=== PATIENT | female | born 1985 | race Caucasian/White ===

== ENCOUNTER 2016-12-10 05:31 | Emergency (ER) | payer OTHER ==
[~2016-12-10] VITALS: Ht 170.2 cm; Wt 106.3 kg
[~2016-12-10 05:31] MED LIST: Bactrim,Septra DS 80 PO; DAILY VALUE1 EACH PO; FLOMAX0.4 MG PO; Feosol PO; GLUCOPHAGE500 MG PO; KEFLEX500 MG PO; LORTAB 5-325 M1 EACH PO; MOTRIN800 MG PO; Motrin PO; NAPROSYN500 MG PO; NORVASC5 MG PO; PEN-VEE K,VEET500 MG PO; PRILOSEC OTC20 MG PO; PROZAC20 MG PO; SPRINTEC1 EACH PO; ZANTAC150 MG PO; ZOFRAN ODT4 MG PO; ~No Medications
[2016-12-10 06:24] LABS: HEMATOCRIT 40.1 % (36.0-46.0); MCH 27.8 PG (29.0-34.0); MCHC 33.2 G/DL (30.0-36.0); MCV 83.9 FL (83-99); MEAN PLAT.VOLUME 11.1 uM^3 (9.5-12.4); PLATELET COUNT 284 K/uL (156-360); RBC DIS.WIDTH-SD 45.1 % (39-53); RED BLOOD COUNT 4.78 M/uL (3.80-5.20); WHITE BLOOD COUNT 9.9 K/uL (4.1-10.2)
[2016-12-10 10:23] VITALS: BP 104/56
== END 2016-12-10 10:25 | disposition left against medical advice (07) ==
LOC: EME 05:31
DX: O03.4 Incomplete spontaneous abortion without complication (principal); Z87.442 Personal history of urinary calculi
CPT/HCPCS: 76801; 81003; 84702; 85027; 86900; 86901; 99281; 99284

== ENCOUNTER 2016-12-16 12:28 | Emergency (ER) | payer OTHER ==
[~2016-12-16] VITALS: Ht 170.2 cm; Wt 106.0 kg
[2016-12-16 13:40] LABS: HEMATOCRIT 33.9 % (36.0-46.0); MCH 28.1 PG (29.0-34.0); MCHC 32.7 G/DL (30.0-36.0); MCV 85.8 FL (83-99); MEAN PLAT.VOLUME 10.4 uM^3 (9.5-12.4); PLATELET COUNT 249 K/uL (156-360); RBC DIS.WIDTH-SD 46.1 % (39-53); RED BLOOD COUNT 3.95 M/uL (3.80-5.20); WHITE BLOOD COUNT 6.4 K/uL (4.1-10.2)
[2016-12-16 13:58] LABS: ADD MIUA? YES; BILIRUBIN NEGATIVE; BLOOD LARGE; COLOR YELLOW ((YELLOW)); GLUCOSE (STRIP) NEGATIVE; KETONES NEGATIVE; LEUKOCYTES NEGATIVE; NITRITE NEGATIVE; PROTEIN (STRIP) 100; SPECIFIC GRAVITY 1.018 (1.000-1.030)
[2016-12-16 14:24] LABS: ALKALINE PHOSPHATASE 67 IU/L (3-129); ANION GAP 9 MEQ/L (2-14); CHLORIDE 107 MEQ/L (99-109); GFR ESTIMATE (CALCULATED) > 59 mL/min/; GLUCOSE 89 mg/dL (70-99); POTASSIUM 3.9 MEQ/L (3.7-5.4); SAMPLE HEMOLYSIS CHECK 0; SAMPLE ICTERIC CHECK 0; SAMPLE LIPEMIA CHECK 0; SODIUM 142 MEQ/L (136-147); TOTAL BILIRUBIN 0.4 MG/DL (0.0-1.0); UREA NITROGEN (BUN) 20 mg/dL (9-23)
[2016-12-16 14:26] LABS: BACTERIA NONE SEEN /HPF; EPITHELIAL CELLS 1+ /HPF; MUCUS NONE SEEN /LPF; RED BLOOD CELLS TNTC /HPF (0-5); UCUL ADDED? NO; WHITE BLOOD CELLS 0-5 /HPF (0-5)
[2016-12-16 16:13] VITALS: BP 129/89
== END 2016-12-16 16:14 | disposition home or self-care (01) ==
LOC: EME 12:28
PROVIDERS: Physician Assistant
PROC: 10D17ZZ Extraction of Products of Conception, Retained, Via Natural or Artificial Opening (ICD-10-PCS; principal; 2016-12-16)
DX: O07.39 Failed attempted termination of pregnancy with other complications (principal)
CPT/HCPCS: 76856; 80053; 81003; 84702; 85027; 86850; 86900; 86901; 99281; 99285; J3010; J7030

== ENCOUNTER 2017-04-21 15:38 | Emergency (ER) | payer OTHER ==
[~2017-04-21] VITALS: Ht 172.7 cm; Wt 100.4 kg
[2017-04-21] MEDS ORDERED: JUNEL1 EAC1 PO (16:11)
[2017-04-21] MEDS ORDERED: LYRICA50 MG PO (16:11)
[2017-04-21 16:30] LABS: HEMATOCRIT 34.2 % (36.0-46.0); MCH 23.6 PG (29.0-34.0); MCHC 29.8 G/DL (30.0-36.0); MEAN PLAT.VOLUME 11.4 uM^3 (9.5-12.4); PLATELET COUNT 227 K/uL (156-360); RBC DIS.WIDTH-CV 18.1 % (11.8-14.6); RBC DIS.WIDTH-SD 51.9 % (39-53); RED BLOOD COUNT 4.33 M/uL (3.80-5.20); WHITE BLOOD COUNT 7.2 K/uL (4.1-10.2)
[2017-04-21 16:30] LABS: ADD MIUA? YES; BILIRUBIN NEGATIVE; BLOOD SMALL; COLOR YELLOW ((YELLOW)); GLUCOSE (STRIP) NEGATIVE; KETONES NEGATIVE; LEUKOCYTES SMALL; NITRITE NEGATIVE; PROTEIN (STRIP) NEGATIVE; SPECIFIC GRAVITY 1.019 (1.000-1.030); UROBILINOGEN 0.2 MG/DL (0.2-1.0)
[2017-04-21 16:35] LABS: BACTERIA RARE /HPF; EPITHELIAL CELLS 2+ /HPF; MUCUS TRACE /LPF; RED BLOOD CELLS 20-30 /HPF (0-5); WHITE BLOOD CELLS 0-5 /HPF (0-5)
[2017-04-21 16:50] LABS: CHLORIDE 107 mEq/L (99-109); POTASSIUM 4.2 mEq/L (3.7-5.4); SODIUM 139 mEq/L (136-147)
[2017-04-21 16:51] LABS: GLUCOSE 98 mg/dL (70-99)
[2017-04-21 16:53] LABS: ANION GAP 7 MEQ/L (2-14); QUANTITATIVE HCG < 4.0 MIU/ML
[2017-04-21 16:55] LABS: GFR ESTIMATE (CALCULATED) > 59 mL/min/
[2017-04-21 16:56] LABS: UREA NITROGEN (BUN) 23 mg/dL (9-23)
[2017-04-21] MEDS ORDERED: FLOMAX0.4 MG PO (17:49)
[2017-04-21] MEDS ORDERED: NORCO 5/3251 TABLET PO (17:49)
[2017-04-21] MEDS ORDERED: NAPROSYN500 MG PO (17:49)
[2017-04-21 18:38] VITALS: BP 130/88
== END 2017-04-21 18:40 | disposition home or self-care (01) ==
LOC: EME 15:38
PROVIDERS: Nurse Practitioner Family
DX: N20.0 Calculus of kidney (principal); R31.9 Hematuria, unspecified; Z87.442 Personal history of urinary calculi; K21.9 Gastro-esophageal reflux disease without esophagitis; I10 Essential (primary) hypertension
CPT/HCPCS: 74000; 80048; 81003; 84702; 85027; 99281; 99284; J1885; J2270; J7030

== ENCOUNTER 2018-04-01 16:36 | Inpatient (IN) | payer OTHER ==
[~2018-04-01] VITALS: Ht 170.2 cm; Wt 125.0 kg
[~2018-04-01 16:36] MED LIST changes: +JUNEL1 EAC1 PO; +LYRICA50 MG PO; +NORCO 5/3251 TABLET PO
[2018-04-01 17:07] LABS: BASOPHIL (%) 0.5 % (0-1); EOSINOPHIL (%) 0.5 % (0-5); HEMATOCRIT 36.3 % (36.0-46.0); HEMOGLOBIN 11.2 G/DL (11.9-15.5); IMMATURE GRANULOCYTE (%) 0.2 % (0.0-0.7); LYMPHOCYTE (%) 22.6 % (15-42); LYMPHOCYTE COUNT 1.4 K/uL (1.0-2.8); MCH 25.6 PG (29.0-34.0); MCHC 30.9 G/DL (30.0-36.0); MCV 82.9 FL (83-99); MONOCYTE (%) 4.1 % (3-12); MONOCYTE COUNT 0.3 K/uL (0-0.8); NEUTROPHIL (%) 72.1 % (45-76); NEUTROPHIL COUNT 4.6 K/uL (1.8-6.4); PLATELET COUNT 241 K/uL (156-360); RBC DIS.WIDTH-CV 16.4 % (11.8-14.6); RBC DIS.WIDTH-SD 48.8 % (39-53); RED BLOOD COUNT 4.38 M/uL (3.80-5.20); WHITE BLOOD COUNT 6.3 K/uL (4.1-10.2)
[2018-04-01 17:14] LABS: ALBUMIN 4.1 g/dL (3.2-4.8)
[2018-04-01 17:15] LABS: CHLORIDE 110 mEq/L (99-109); POTASSIUM 4.1 mEq/L (3.7-5.4); SODIUM 143 mEq/L (136-147)
[2018-04-01 17:17] LABS: GLUCOSE 116 mg/dL (70-99); TOTAL PROTEIN 7.3 g/dL (6.4-8.3)
[2018-04-01 17:19] LABS: TOTAL BILIRUBIN 0.3 mg/dL (0.0-1.0)
[2018-04-01 17:20] LABS: ALKALINE PHOSPHATASE 77 IU/L (3-129); SERUM ETHYL ALCOHOL 91 mg/dL
[2018-04-01 17:21] LABS: CREATININE 0.7 mg/dL (0.6-1.3); GFR ESTIMATE (CALCULATED) > 59 mL/min/
[2018-04-01 17:22] LABS: AST (GOT) 18 IU/L (2-34); UREA NITROGEN (BUN) 14 mg/dL (9-23)
[2018-04-01 17:24] LABS: ALT (GPT) 7 IU/L (3-49)
[2018-04-01 17:29] LABS: QUANTITATIVE HCG < 4.0 MIU/ML
[2018-04-01 17:57] LABS: APPEARANCE CLEAR ((CLEAR)); BILIRUBIN NEGATIVE; BLOOD NEGATIVE; COLOR YELLOW ((YELLOW)); GLUCOSE (STRIP) NEGATIVE; KETONES 5; LEUKOCYTES SMALL; NITRITE NEGATIVE; PROTEIN (STRIP) NEGATIVE
[2018-04-01 17:59] LABS: BACTERIA RARE /HPF; EPITHELIAL CELLS 1+ /HPF; MUCUS TRACE /LPF; RED BLOOD CELLS 0-5 /HPF (0-5); UCUL ADDED? NO; WHITE BLOOD CELLS 0-5 /HPF (0-5)
[2018-04-01 18:15] LABS: AMPHETAMINE NEGATIVE (500 ng/mL); BARBITURATES NEGATIVE (200 ng/mL); BENZODIAZEPINES NEGATIVE (150 ng/mL); BUPRENORPHINE NEGATIVE (10 ng/mL); COCAINE NEGATIVE (150 ng/mL); METHADONE NEGATIVE (200 ng/mL); METHAMPHETAMINE NEGATIVE (500 ng/mL); OPIATES (MORPHINE) NEGATIVE (100 ng/mL); OXYCODONE NEGATIVE (100 ng/mL); PHENCYCLIDINE NEGATIVE (25 ng/mL); PROPOXYPHENE NEGATIVE (300 ng/mL); THC CANNABINOIDS NEGATIVE (50 ng/mL); TRICYCLIC ANTIDEPRESSANTS NEGATIVE (300 ng/mL)
[2018-04-01 22:21] VITALS: BP 155/99
[2018-04-02 07:49] VITALS: BP 177/90
[2018-04-02 12:05] VITALS: BP 134/85
[2018-04-02 16:33] VITALS: BP 142/87
[2018-04-03 07:58] VITALS: BP 143/86
[2018-04-04 07:48] VITALS: BP 116/69
[2018-04-04] MEDS ORDERED: DESYREL100 MG PO (09:45)
[2018-04-04] MEDS ORDERED: NALTREXONE HCL50 MG PO (09:45)
[2018-04-04] MEDS ORDERED: BUPROPION XL150 MG PO (09:45)
== END 2018-04-04 13:12 | disposition home or self-care (01) | DRG 885 ==
LOC: EME 16:36 → EDOF 18:55 → 1WEST 18:55 → ENRESERV 22:10 → 1WEST 22:17
PROVIDERS: Emergency Medicine
PROC: HZ2ZZZZ Detoxification Services for Substance Abuse Treatment (ICD-10-PCS; principal; 2018-04-01)
DX: F33.2 Major depressive disorder, recurrent severe without psychotic features (principal); R45.851 Suicidal ideations; F10.229 Alcohol dependence with intoxication, unspecified; Y90.4 Blood alcohol level of 80-99 mg/100 ml; E66.01 Morbid (severe) obesity due to excess calories; Z91.14 Patient's other noncompliance with medication regimen; Z68.41 Body mass index [BMI] 40.0-44.9, adult; Z63.5 Disruption of family by separation and divorce
CPT/HCPCS: 80053; 81003; 84702; 85025; 97150 GO; 97165 GO; 99281; 99285; G0480

== ENCOUNTER 2018-05-02 07:50 | Emergency (ER) | payer OTHER ==
[~2018-05-02] VITALS: Ht 170.2 cm; Wt 130.8 kg
[~2018-05-02 07:50] MED LIST changes: +BUPROPION XL150 MG PO; +DESYREL100 MG PO; +NALTREXONE HCL50 MG PO
[2018-05-02 08:45] LABS: HEMATOCRIT 35.8 % (36.0-46.0); HEMOGLOBIN 11.1 G/DL (11.9-15.5); MCH 25.3 PG (29.0-34.0); MCV 81.7 FL (83-99); PLATELET COUNT 275 K/uL (156-360); RBC DIS.WIDTH-CV 15.8 % (11.8-14.6); RBC DIS.WIDTH-SD 46.6 % (39-53); RED BLOOD COUNT 4.38 M/uL (3.80-5.20); WHITE BLOOD COUNT 7.1 K/uL (4.1-10.2)
[2018-05-02 08:58] LABS: CHLORIDE 106 mEq/L (99-109); SODIUM 142 mEq/L (136-147)
[2018-05-02 09:00] LABS: GLUCOSE 107 mg/dL (70-99)
[2018-05-02 09:03] LABS: SERUM ETHYL ALCOHOL < 10 mg/dL
[2018-05-02 09:04] LABS: CREATININE 0.7 mg/dL (0.6-1.3); GFR ESTIMATE (CALCULATED) > 59 mL/min/
[2018-05-02 09:05] LABS: UREA NITROGEN (BUN) 16 mg/dL (9-23)
[2018-05-02 09:12] LABS: QUANTITATIVE HCG < 4.0 MIU/ML
[2018-05-02 10:03] LABS: APPEARANCE CLOUDY ((CLEAR)); BILIRUBIN NEGATIVE; BLOOD LARGE; GLUCOSE (STRIP) NEGATIVE; KETONES 5; LEUKOCYTES NEGATIVE; NITRITE NEGATIVE; PROTEIN (STRIP) 100; SPECIFIC GRAVITY 1.021 (1.000-1.030)
[2018-05-02 10:05] LABS: COLOR RED ((YELLOW))
[2018-05-02 10:13] LABS: AMPHETAMINE NEGATIVE (500 ng/mL); BARBITURATES NEGATIVE (200 ng/mL); BENZODIAZEPINES PRESUMPTIVE POSITIVE (150 ng/mL); BUPRENORPHINE NEGATIVE (10 ng/mL); COCAINE NEGATIVE (150 ng/mL); METHADONE NEGATIVE (200 ng/mL); METHAMPHETAMINE NEGATIVE (500 ng/mL); OPIATES (MORPHINE) NEGATIVE (100 ng/mL); OXYCODONE PRESUMPTIVE POSITIVE (100 ng/mL); PHENCYCLIDINE NEGATIVE (25 ng/mL); PROPOXYPHENE NEGATIVE (300 ng/mL); THC CANNABINOIDS NEGATIVE (50 ng/mL); TRICYCLIC ANTIDEPRESSANTS NEGATIVE (300 ng/mL)
[2018-05-02] MEDS ORDERED: VITAMIN B-1100 MG PO (10:23)
[2018-05-02] MEDS ORDERED: LIBRIUM25 MG PO (10:23)
[2018-05-02 10:38] LABS: BACTERIA RARE /HPF; EPITHELIAL CELLS 1+ /HPF; MUCUS NONE SEEN /LPF; RED BLOOD CELLS TNTC /HPF (0-5); WHITE BLOOD CELLS NONE SEEN /HPF (0-5)
[2018-05-02 10:42] VITALS: BP 146/92
[2018-05-02 11:04] LABS: BENZODIAZEPINES, URINE SCREEN Negative (200 ng/mL)
== END 2018-05-02 10:45 | disposition home or self-care (01) ==
LOC: EME 07:50
PROVIDERS: Nurse Practitioner Family
DX: F43.9 Reaction to severe stress, unspecified (principal); Z72.89 Other problems related to lifestyle; Z87.442 Personal history of urinary calculi; Z90.49 Acquired absence of other specified parts of digestive tract
CPT/HCPCS: 80048; 81003; 84702; 84999; 85027; G0480